=== PATIENT | male | born 1990 | race Caucasian/White ===

== ENCOUNTER 2019-04-23 08:11 | Day surgery (SDC) | payer OTHER ==
[2019-04-21 10:03] VITALS: BMI 19.9
[~2019-04-23 08:11] MED LIST: LACTATED RINGERS 1,000 ML IV SCH; LIDOCAINE 1% (10MG/ML) FOR IV START INTRADERMA PRN
[2019-04-23 08:36] VITALS: RESP 16; TEMP 98.2
[2019-04-23] MEDS ORDERED: GLYCOPYRROLATE 0.2 MG/ML 2 ML VIAL ONE (08:52)
[2019-04-23] MEDS ORDERED: PROPOFOL 10 MG/ML 20 ML VIAL IV ONE (08:52)
[2019-04-23] MEDS ORDERED: ATROPINE SULFATE 0.1 MG/ML 10ML SYRINGE ONE (08:52)
[2019-04-23] MEDS ORDERED: LIDOCAINE 1% INJ 10MG/ML (20 ML MDV) ONE (08:52)
--- NOTE | 2019-04-23 08:57 | P.GSHP ---
History of Present Illness H&P Date: 04/23/19 Chief Complaint: Abdominal pain,, bloating, constipation This a 29-year-old male who presents today for colonoscopy. Patient has had complaints of abdominal pain and bloating, . He presents today for colonoscopy. Past Medical History Additional Past Medical History / Comment(s): " stomach issues" History of Any Multi-Drug Resistant Organisms: None Reported Additional Past Surgical History / Comment(s): EGD. WISDOM TEETH REMOVED UNDER ANESTHESIA Past Anesthesia/Blood Transfusion Reactions: No Reported Reaction Smoking Status: Former smoker - Past Family History Mother Family Medical History: No Reported History Medications and Allergies Home Medications Medication Instructions Recorded Confirmed Type No Known Home Medications 04/21/19 04/23/19 History Allergies Allergy/AdvReac Type Severity Reaction Status Date / Time pseudoephedrine Allergy Rapid Verified 04/23/19 08:26 [From [facility]] Heart Rate Surgical - Exam Vital Signs Temp Pulse Resp BP Pulse Ox 98.2 F 67 16 118/67 96 04/23/19 08:30 04/23/19 08:30 04/23/19 08:30 04/23/19 08:30 04/23/19 08:30 - General well developed, well nourished, no distress - Eyes PERRL - ENT normal pinna - Neck no masses - Respiratory normal expansion - Cardiovascular Rhythm: regular - Abdomen Abdomen: soft, non tender Assessment and Plan Assessment: Abdominal pain, bloating, gas patient. We'll perform colonoscopy.
--- NOTE | 2019-04-23 09:12 | P.OP ---
Date of Procedure: 04/23/19 Preoperative Diagnosis: Change in bowel habits Abdominal pain Postoperative Diagnosis: Normal colonoscopy Procedure(s) Performed: Colonoscopy Anesthesia: MAC Surgeon: Clay King Pathology: none sent Condition: stable Disposition: PACU Description of Procedure: No PROCEDURE: The patient was placed on the endoscopy table in the lateral position. Digital rectal examination was performed which revealed no abnormalities. The prostate was symmetrical without nodules. Flexible colonoscope was then placed in the patient's anus and passed throughout the entire colon. The ileocecal valve was visualized. The cecum, ascending, transverse, descending and sigmoid colon were normal. The rectum was normal as well. There were no masses, polyps or diverticula noted in the entire colon. SUMMARY OF FINDINGS: Normal colonoscopy.
[2019-04-23 09:31] VITALS: BP 134/83; PULSE 85
== END 2019-04-23 09:46 | disposition home or self-care (01) ==
LOC: ORWHC2ENDO 08:11
PROVIDERS: ATTEND Surgery
DX: K59.00 Constipation, unspecified (principal); Z87.891 Personal history of nicotine dependence; Z88.8 Allergy status to other drugs, medicaments and biological substances; Z98.818 Other dental procedure status
CPT/HCPCS: 45378; J2001; J0461; J2704